=== PATIENT | male | born 1960 | race Caucasian/White ===

== ENCOUNTER 2024-10-13 12:12 | Outpatient (CLI) | payer MEDICARE, OTHER, SELFPAY ==
--- NOTE | ~2024-10-13 | PE_ITS ---
EXAMINATION: PET_PETPSMAST_PT DATE: 10/13/2024 15:27 INDICATION: Prostate cancer. TECHNIQUE: 5.485 mCi of Ga-68 gozetotide was administered intravenously. Low dose computed tomography (CT) images were acquired from the base of the brain to the proximal thighs for attenuation correcti on and anatomic localization. Automated exposure control was employed. Dose-length product (DLP) was 1312 mGy-cm. Positron emission tomography (PET) images were acquired in the same distribution. COMPARISON: None FINDINGS: Head/neck: There are no pathologically enlarged lymph nodes. There is mucosal thickening in the paran rene sinuses. Chest: The lungs demonstrate mild atelectasis. No pleural effusion. The heart size is normal. No pratibha cardial effusion. There are coronary artery calcifications. Abdomen/pelvis/proximal thighs: The liver and spleen are normal. There are changes of cholecystectomy . There are surgical changes of the stomach. The pancreas and adrenal glands are normal. There are pe ripelvic cysts in the kidneys measuring up to 2.9 cm on the left. The prostate is mildly enlarged. Th ere is increased activity in the prostate with maximum SUV of 22.2. There are no dilated loops of bow el. There are no pathologically enlarged lymph nodes. There is no ascites. There are changes of anter ior fusion procedure at L5-S1. IMPRESSION: 1. Mildly enlarged prostate with increased activity, consistent with primary malignancy. No evidence of metastatic disease. Reviewed, dictated and finalized at location A. [employer] IMPRESSION: 1. Mildly enlarged prostate with increased activity, consistent with primary ma lignancy. No evidence of metastatic disease.
== END 2024-10-13 12:13 | disposition home or self-care (01) ==
PROVIDERS: Visit Provider Urology
DX: C61 Malignant neoplasm of prostate (principal)
CPT/HCPCS: 78815; A9596